=== PATIENT | male | born 1955 | race Hispanic/Latino ===

== ENCOUNTER 2024-08-04 05:14 | Observation (INO) | payer MEDICARE, OTHER ==
[2024-07-31 13:42] LABS: BASOPHILS % 0.3 % (0.0-1.0); EOSINOPHILS # (AUTO) 0.2 (0.0-0.4); EOSINOPHILS % 2.6 % (0.0-6.0); HEMATOCRIT 36.8 % (38.2-49.6); HEMOGLOBIN 12.2 g/dL (14.0-18.0); LYMPHOCYTES # (AUTO) 3.3 (1.0-3.2); LYMPHOCYTES % 36.1 % (18.0-39.1); MEAN CORPUSCULAR HGB CONC 33.2 g/dL (31-35); MEAN CORPUSCULAR VOLUME 90.4 fL (81-99); MONOCYTES # (AUTO) 0.8 (0.2-0.8); MONOCYTES % 9.2 % (4.4-11.3); NEUTROPHILS # (AUTO) 4.7 (2.1-6.9); NEUTROPHILS % 51.5 % (38.7-80.0); PLATELET COUNT 283 x10e3/uL (140-360); RED BLOOD COUNT 4.07 x10e6/uL (4.3-5.7); RED CELL DISTRIBUTION WIDTH 12.4 % (11.7-14.4); WHITE BLOOD COUNT 9.17 x10e3/uL (4.8-10.8)
[2024-07-31 14:07] LABS: ANION GAP 14.2 mmol/L (8-16); CALCIUM 9.4 mg/dL (8.4-10.2); CREATININE, SERUM 0.85 mg/dL (0.72-1.25); POTASSIUM 4.2 mmol/L (3.5-5.1)
[~2024-08-04 05:14] MED LIST: AMLODIPINE BESY10 MG PO; MAGNESIUM PO; ULTRAM 50MG50 MG PO
[2024-08-04] MEDS: CEFAZOLIN SODIUM 2 GM ONE (06:01)
[2024-08-04] MEDS: LACTATED RINGER'S 1,000 ML ONE (06:02)
[2024-08-04] MEDS ORDERED: FENTANYL CITRATE/PF 100MCG/2 ML INJ ONE (06:40)
[2024-08-04] MEDS ORDERED: MIDAZOLAM HCL 2 MG/2 ML VIAL ONE (06:41)
[2024-08-04] MEDS ORDERED: PROPOFOL IV EMULSION 10 MG/ML 20 ML VIAL ONE (06:41)
[2024-08-04] MEDS ORDERED: ROCURONIUM BROMIDE 1 ML IV ONE (06:41)
[2024-08-04] MEDS ORDERED: LIDOCAINE HCL 2% LOCAL INJ 5 ML SDV VIAL INJ ONE (06:41)
[2024-08-04] MEDS ORDERED: BUPIVACAINE 0.25% 30ML SDV ONE (06:54)
[2024-08-04] MEDS ORDERED: SUCCINYLCHOLINE CHLORIDE 20 MG/ML 10ML VIAL ONE (06:59)
[2024-08-04] MEDS ORDERED: SODIUM CHLORIDE 0.9% 100 ML ONE (07:00)
[2024-08-04] MEDS ORDERED: ONDANSETRON HCL INJ 2MG/ML 2ML 2 MG/ML VIAL ONE (07:11)
[2024-08-04] MEDS ORDERED: DEXAMETHASONE SOD PHOS INJ 4 MG/ML SDV ONE (07:11)
[2024-08-04] MEDS ORDERED: ACETAMINOPHEN 1000 MG/100 ML 100 ML IV ONE (07:12)
[2024-08-04] MEDS ORDERED: SUGAMMADEX SODIUM 200 MG/2 ML VIAL IV ONE (07:32)
[2024-08-04] MEDS ORDERED: SEVOFLURANE INHAL SOLN 250 ML PEN BTL ONE (07:33)
[2024-08-04 08:11] VITALS: TEMP 98.3
[2024-08-04] MEDS ORDERED: DEXTROSE 5%/0.45% SOD CHL 1,000 ML IV SCH (08:15)
[2024-08-04] MEDS ORDERED: ONDANSETRON HCL INJ 2MG/ML 2ML 2 MG/ML VIAL IV PRN (08:15)
[2024-08-04] MEDS ORDERED: AMLODIPINE BESYLATE 10 MG TAB PO SCH (09:00)
[2024-08-04] MEDS ORDERED: HYDROCODON-ACE1 EA11 PO (09:11)
[2024-08-04] MEDS ORDERED: HYDROCODONE/APAP 7.5MG-325MG 1 EA TAB ONE (09:28)
[2024-08-04] MEDS: HYDROCODONE/APAP 7.5MG-325MG 1 EA TAB PO ONE (09:30)
[2024-08-04 10:00] VITALS: BP 158/63; PULSE 60; RESP 18; O2SAT 98
== END 2024-08-04 10:15 | disposition home or self-care (01) ==
LOC: OR 05:14 → PACU V 08:15
PROVIDERS: ADMIT Surgery; ATTEND Surgery
DX: K43.2 Incisional hernia without obstruction or gangrene (principal); I10 Essential (primary) hypertension; E66.9 Obesity, unspecified; Z68.41 Body mass index [BMI] 40.0-44.9, adult
CPT/HCPCS: 36415; 49615; 71046; 80048; 85025; C1781; G0378; J0131; J0330; J1100; J2003; J2405; J2704; J3010; J7050; J7121; J0690; J2250